=== PATIENT | female | born 1940 | race Caucasian/White ===

== ENCOUNTER → 2016-03-29 | Outpatient (CLI) | payer OTHER, BC ==
[2016-03-29 11:33] LABS: BUN/CREATININE RATIO 23.33 (6-20); CALCIUM 9.8 mg/dL (8.7-10.7); CREATININE 1.2 mg/dL (0.50-1.20); POTASSIUM 4.5 meq/L (3.8-5.2)
== END ==
LOC: MOB LAB 10:25
PROVIDERS: ATTEND Internal Medicine
DX: M81.0 Age-related osteoporosis without current pathological fracture (principal)
CPT/HCPCS: 36415; 80048

== ENCOUNTER → 2016-04-05 | Outpatient (CLI) | payer OTHER, BC ==
--- NOTE | 2016-04-05 20:54 | DI ---
CT BONE DENSITOMETRY OF THE SPINE AND HIP, 04/05/2016 10:51 AM : Clinical History: Asymptomatic post menopausal patient. Screening. Previous Exam: 12/23/2013. 3D Quantitative CT (QCT) Bone Mineral Densitometry: The [place] scans are normal. Low dose scans are sampled through the midbodies of L1 and L2. Average bone mineral density (BMD) is 81.0 mg/mL corresponding to a volumetric T-score of -3.4, and Z-score o f 0.1. The [employer]'s (ACR) volumetric QCT BMD conversion table categorizes this patient as having osteopenia of the lumbar spine, but is borderline osteoporotic. The previous study gave a bone mineral density of 98.1 mg per mL. On the previous study, axial scans through the lumbar spine showed bulky periaortic adenopathy that has resolved completely. CT X-Ray Absorptiometry (CTXA) Bone Mineral Densitometry of the Right Hip: Total hip BMD: 631 mg/cm2 T-score: -2.5 Z-score: -0.6 Femoral neck BMD: 542 mg/cm2 T-score: -2.3 Z-score: -0.5 The administrative and program specialist film shows the patient be status post ORIF of a left intertrochanteric fracture. Note: T-scores of the spine and hip are discordant approximately 40% of the time. Changes in actual Q CT or CTXA/DEXA measurements are more reliable in assessment of change in BMD status rather than allen ges in T-scores. READIN. The QCT lumbar spine BMD value by ACR's 3D volumetric to 2D areal conversion categorizes this pat ient as having osteopenia of the lumbar spine, but this value is very close to being categorized as b eing osteoporotic. The QCT spine T-score is -3.4, indicating osteoporosis of the lumbar spine. 2. The CTXA total hip and femoral neck BMD T-scores are -2.5 and -2.3, respectively. The right total hip T-score indicates this patient has osteoporosis of the total hip. 3. Since the previous exam from 12/23/2013, bulky periaortic adenopathy that was present previously has completely resolved.
== END ==
LOC: CT 10:43
PROVIDERS: ATTEND Internal Medicine
DX: M81.0 Age-related osteoporosis without current pathological fracture (principal)
CPT/HCPCS: 77078

== ENCOUNTER → 2016-04-13 | Outpatient (CLI) | payer OTHER, BC | LOC: MMPC 09:00 | PROVIDERS: ATTEND Nurse Practitioner Family | DX: Z01.419 Encounter for gynecological examination (general) (routine) without abnormal findings (principal); M81.0 Age-related osteoporosis without current pathological fracture | CPT/HCPCS: G0101; G0439; G0463; J0897 ==

== ENCOUNTER → 2016-08-24 | Outpatient (CLI) | payer OTHER, BC ==
--- NOTE | 2016-08-24 10:32 | DI ---
LEFT ANKLE, 08/24/2016 9:55 AM: Clinical History: Left foot pain. Previous Exam: None at this facility. AP and lateral views are submitted. There is no acute soft tissue, osseous, or joint abnormality. Reading: Normal left ankle exam.
--- NOTE | 2016-08-24 10:36 | DI ---
LEFT FOOT, 08/24/2016 9:55 AM: Clinical History: Left foot pain. Previous Exam: None at this facility. 3 weightbearing views are submitted. There is no acute soft tissue, osseous, or joint abnormality. Th ere is a bunion with a hallux valgus deformity. Flexion deformities are present in the third through fifth toes consistent with hammertoe deformities. Mild arthritic changes are present in the IP joint. Reading: Bunion with mild hallux valgus deformity. There are hammertoe deformities in the third through fifth toes.
== END ==
LOC: MOB RAD 09:56
PROVIDERS: ATTEND Podiatrist Foot & Ankle Surgery
DX: M79.672 Pain in left foot (principal); M25.572 Pain in left ankle and joints of left foot; M21.42 Flat foot [pes planus] (acquired), left foot; M21.41 Flat foot [pes planus] (acquired), right foot; M20.12 Hallux valgus (acquired), left foot; M20.11 Hallux valgus (acquired), right foot; M21.612 Bunion of left foot; M20.42 Other hammer toe(s) (acquired), left foot; M20.41 Other hammer toe(s) (acquired), right foot
CPT/HCPCS: 20605 ×2; 73600; 73630; G0463; J0702

== ENCOUNTER → 2016-08-30 | Outpatient (CLI) | payer OTHER, BC | LOC: MMPC 11:11 | PROVIDERS: ATTEND Internal Medicine | DX: B02.9 Zoster without complications (principal) | CPT/HCPCS: 99213; G0463 ==

== ENCOUNTER 2017-09-25 08:00 | Inpatient (IN) ==
[~2017-09-25 08:00] MED LIST: BUPivacaine Liposome/PF (Exparel) Inj 20ml vial INFIL ONE; Ketorolac Inj 30 MG, Morphine Inj (Ortho Cocktail) 5 MG, BUPivacaine Inj 0.25% PF 150 MG SPLASH ONE; LIDOCAINE W/ SODIUM BICARB 0.5 ML SYR SUBD ONE; Tranexamic Acid 1,000 MG in Sodium Chloride 0.9% 100 ML IV SCH; ceFAZolin Inj 2gm (Premix) 2 GM/50 ML BAG IV ONE
[2017-10-02] MEDS ORDERED: ceFAZolin Inj 2gm (Premix) 2 GM/50 ML BAG IV ONE ×2 (06:00→07:17)
[2017-10-02] MEDS ORDERED: Tranexamic Acid 1,000 MG in Sodium Chloride 0.9% 100 ML IV SCH (06:00)
[2017-10-02] MEDS ORDERED: LIDOCAINE W/ SODIUM BICARB 0.5 ML SYR SUBD ONE (06:00)
[2017-10-02] MEDS ORDERED: Ketorolac Inj 30 MG, Morphine Inj (Ortho Cocktail) 5 MG, BUPivacaine Inj 0.25% PF 150 MG SPLASH ONE ×3 (06:00)
[2017-10-02] MEDS ORDERED: BUPivacaine Liposome/PF (Exparel) Inj 20ml vial INFIL ONE ×2 (06:00→10:50)
[2017-10-02] MEDS ORDERED: Lactated Ringers 1,000 ML PRIMARY IV ONE ×3 (07:17→15:22)
[2017-10-02] MEDS ORDERED: LIDOCAINE W/ SODIUM BICARB 0.5 ML SYR ONE (07:17)
[2017-10-02] MEDS ORDERED: TRANEXAMIC ACID 1,000 MG / 10 ML VIAL ONE (07:17)
[2017-10-02] MEDS ORDERED: Sodium Chloride 0.9% 200 ML IV ONE (07:18)
[2017-10-02 10:18] LABS: BILIRUBIN,URINE NEGATIVE (NEG); CLARITY,URINE CLEAR (CLEAR); COLOR,URINE YELLOW (Y); GLUCOSE, URINE (UA) NEGATIVE (NEG); OCCULT BLOOD,URINE NEGATIVE (NEG); PROTEIN,URINE NEGATIVE (NEG); UROBILINOGEN,URINE 0.2 EU/dL (0.2)
[2017-10-02 10:35] LABS: SQUAMOUS EPITHELIAL CELL,UR FEW; URINE SAMPLE TYPE CLEAN CATCH URINE
[2017-10-02 10:36] LABS: URINE CASTS MODERATE
[2017-10-02] MEDS: Lactated Ringers 1,000 ML PRIMARY IV SCH ×6 (10:36→18:10)
[2017-10-02] MEDS ORDERED: BACITRACIN 50,000 UNIT VIAL IRRIG ONE (10:50)
[2017-10-02] MEDS ORDERED: Sodium Chloride 0.9% vial 60 ML ONE (10:50)
[2017-10-02 11:02] LABS: BASOPHILS # (AUTO) 0.01 10*3/UL; BASOPHILS % (AUTO) 0.2 % (0-1); EOSINOPHILS # (AUTO) 0.05 10*3/UL; EOSINOPHILS % (AUTO) 1.2 % (0-8); Hematocrit [HCT] 39.4 % (37.0-47.0); Hemoglobin [HGB] 13.4 g/dL (12.0-16.0); LYMPHOCYTES # (AUTO) 0.62 10*3/uL; MEAN CORPUSCULAR HEMOGLOBIN 32.7 PG (27-31); MEAN CORPUSCULAR VOLUME 96.1 FL (81-99); MEAN PLATELET VOLUME 10.5 FL (7.4-12.2); MONOCYTES # (AUTO) 0.45 10*3/UL (0.3-0.8); MONOCYTES % (AUTO) 10.9 % (5-15); NEUTROPHILS # (AUTO) 2.99 10*3/UL; NEUTROPHILS % (AUTO) 72.7 % (50-80)
[2017-10-02 11:07] LABS: PLATELET MORPHOLOGY COMMENT NORMAL MORPHOLOGY (NORM); RBC MORPHOLOGY COMMENT NORMAL MORPHOLOGY (NORM); WBC MORPHOLOGY COMMENT NORMAL MORPHOLOGY (NORM)
[2017-10-02 11:23] LABS: BLOOD UREA NITROGEN 27 mg/dL (7-22); BUN/CREATININE RATIO 24.54 (6-20); SERUM ALBUMIN 4.5 g/dL (3.5-4.8)
[2017-10-02] MEDS ORDERED: LIDOCAINE 2%/ EPI 1:200,000 - 20 ML VIAL ONE (11:58)
[2017-10-02] MEDS ORDERED: MIDAZOLAM 5 MG/1 ML ONE (11:58)
[2017-10-02] MEDS ORDERED: fentaNYL Inj 100 MCG/2 ML VIAL ONE ×2 (11:59→12:26)
[2017-10-02] MEDS ORDERED: BUPivacaine Inj 0.5% PF (5mg/ml) 30ml vial ONE (11:59)
[2017-10-02] MEDS ORDERED: Sodium Chloride 0.9% 250 ML IV ONE (12:16)
[2017-10-02] MEDS ORDERED: Propofol 1,000 MG/100 ML VIAL IV ONE (12:23)
--- NOTE | 2017-10-02 13:22 | CRNA.PROCE ---
Central Neuraxis Block Placemt - - Safety Measures: Time Out Taken - - Type of Block: Subarachnoid Reason for Block: Surgical Moniters Used During Block: EKG, SPO2, NIBP Positioning: Sitting Skin Prep Used: ChloroPrep Draped: No Skin Infiltration - Enter Amount Used in Comment Field: 1% Xylocaine (mL): Yes ( skin wheal) Spinal Needle Used: 25 Jocelyne 80 mm Local Anesthetic - Enter Amount Used in Comment Field: 0.75 % Bupivacaine with Dextrose (ml): Yes (2ml) Additive Used - Enter Amount Used in Comment Field: Fentanyl (mcg): Yes (15mcg) Bioclusive Dressing Applied: No Anesthesia Time - Other Weight: 56.79 kg Height: 5 ft 4 in Body Mass Index (BMI): 21.4
[2017-10-02] MEDS ORDERED: HYDROmorphone 2 MG/1 ML IVP PRN (13:25)
[2017-10-02] MEDS ORDERED: LIDOCAINE W/ SODIUM BICARB 0.5 ML SYR SUBD PRN (13:25)
[2017-10-02] MEDS ORDERED: BUTORPHANOL TARTRATE 2 MG/1 ML VIAL IVP PRN (13:25)
[2017-10-02] MEDS ORDERED: ONDANSETRON 4 MG/2 ML VIAL IVP PRN ×2 (13:25→16:44)
--- NOTE | 2017-10-02 13:25 | CRNA.PROCE ---
Nerve Block Documentation - - Type of Nerve Block Used: Right Adductor Canal Nerve Block Position for Nerve Block: Supine Moniters Used During Block: EKG, SPO2, NIBP Sedation Used - Enter Amount in Comment Field [ANES.SEDAT]: Midazolam (mg): Yes (3mg), Fentanyl (mcg): Yes (100mcg) Skin Prep Used: ChloroPrep Draped: No Technique: Nerve Stimulator (with US) Nerve Block Needle Used: 80 mm ProBlk II Local Anesthetic - Enter Amt in Comment Field [ANES.LOCNB]: 0.5 % Bupivacaine Plain (mL): Yes (20ml), 2 % Xylocaine with Epinephrine 1:200,000 (mL): Yes (20ml ) Additives to Nerve Blocks: Dexamethasone (mg): Yes (8mg(2ml)) - - PreOp Block : Time In: 12:05 PreOp Block : Time Out: 12:20 Anesthesia Time - Other Weight: 56.79 kg Height: 5 ft 4 in Body Mass Index (BMI): 21.4
--- NOTE | 2017-10-02 16:04 | CRNA.PROGR ---
Anesthesia Time - - Start date: 10/02/17 End date: 10/02/17 - Procedure/Recovery Time Anesthesia : Time In: 12:40 Anesthesia : Time Out: 16:01 Anesthesia : Total Time: 201 - Block Time PreOp Block : Time In: 12:05 PreOp Block : Time Out: 12:20 PreOp Block : Total Time: 15 - Total Anesthesia Time Total Anesthesia Time (minutes): 216 - Other Weight: 56.79 kg Height: 5 ft 4 in Body Mass Index (BMI): 21.4 Physical Status: P2 Anesthesia Type: Spinal Block
[2017-10-02] MEDS ORDERED: CALCIUM CARBONATE 500 MG (TUMS) CHEWABLE TABLET PO PRN (16:44)
[2017-10-02] MEDS ORDERED: ACETAMINOPHEN 325 MG TABLET PO PRN (16:44)
[2017-10-02] MEDS ORDERED: diphenhydrAMINE 25 MG CAPSULE PO PRN (16:44)
[2017-10-02] MEDS ORDERED: BISACODYL 5 MG TABLET PO PRN (16:44)
[2017-10-02] MEDS ORDERED: MAG HYDROX/AL HYDROX/SIMETH 30 ML SUSP PO PRN (16:44)
[2017-10-02] MEDS ORDERED: Ondansetron ODT Tab 8 MG TAB PO PRN (16:44)
[2017-10-02] MEDS ORDERED: Prochlorperazine Tab 10 MG TAB PO PRN (16:44)
[2017-10-02] MEDS ORDERED: BISACODYL 10 MG SUPPOSITORY RECTAL PRN (16:44)
--- NOTE | 2017-10-02 20:28 | ORTHO.PROG ---
Last Taken Vital Signs: Vital Signs - Last Taken Temperature 98.1 F 10/02/17 19:41 Pulse Rate 76 10/02/17 19:41 Respiratory Rate 18 10/02/17 19:41 Blood Pressure 133/76 10/02/17 19:41 Pulse Ox 98 10/02/17 19:41 Subjective: Patient comfortable after right knee replacement, has Dr. espinoza in place as well as local anesthetic and experal Objective: Examination of the right lower extremity shows that she has good active motion of the foot and ankle. Patient has excellent stability of the knee at time of surgery and has dressing in place no active bleeding or thigh pain. No swelling or edema. Laboratory Results 10/02/17 10/02/17 10/02/17 Range/Units 10:10 10:51 10:51 WBC 4.12 L (4.8-10.8) 10^3/uL RBC 4.10 L (4.20-5.40) 10^6/uL Hgb 13.4 (12.0-16.0) g/dL Hct 39.4 (37.0-47.0) % MCV 96.1 (81-99) FL MCH 32.7 H (27-31) PG MCHC 34.0 (33-37) g/dL RDW Std Deviation 44.6 (39-50) fL RDW Coeff of Reid 13.2 (11.5-14.5) % Plt Count 144 (140-350) 10*3/uL MPV 10.5 (7.4-12.2) FL Immature Gran % (Auto) 0 (0-5) % Neut % (Auto) 72.7 (50-80) % Lymph % (Auto) 15.0 (10-50) % [place] % (Auto) 10.9 (5-15) % Eos % (Auto) 1.2 (0-8) % Baso % (Auto) 0.2 (0-1) % Immature Gran # (Auto) 0 10*3/UL Neut # (Auto) 2.99 10*3/UL Lymph # (Auto) 0.62 10*3/uL [place] # (Auto) 0.45 (0.3-0.8) 10*3/UL Eos # (Auto) 0.05 10*3/UL Baso # (Auto) 0.01 10*3/UL WBC Morphology Comment Normal morphology (NORM) Plt Morphology Comment Normal morphology (NORM) RBC Morph Comment Normal morphology (NORM) Sodium 140 (135-145) meq/L Potassium 4.6 (3.8-5.2) meq/L Chloride 105 (98-112) meq/L Carbon Dioxide 27 (23-33) meq/L Anion Gap 8 (5-20) BUN 27 H (7-22) mg/dL Creatinine 1.1 (0.50-1.20) mg/dL BUN/Creatinine Ratio 24.54 H (6-20) Glucose 96 (78-110) mg/dL Calculated Osmolality 294.0 H (267-292) mOsm/kg Calcium 10.3 (8.7-10.7) mg/dL Total Bilirubin 0.8 (0.3-1.2) mg/dL AST 50 H (8-39) IU/L ALT 25 (9-52) IU/L Alkaline Phosphatase 72 (38-126) IU/L Total Protein 7.6 (6.1-8.0) g/dL Albumin 4.5 (3.5-4.8) g/dL Globulin 3.2 (2.50-4.10) g/dL Albumin/Globulin Ratio 1.40 (1.3-2.0) mg/g Ur Collection Type Clean catch urine Urine Color Yellow (Y) Urine Clarity Clear (CLEAR) Urine pH 6.0 (5.0-8.5) Ur Specific [place] 1.010 (1.005-1.030) Urine Protein Negative (NEG) mg/dl Urine Glucose (UA) Negative (NEG) mg/dL Urine Ketones Negative (NEG) Urine Occult Blood Negative (NEG) Urine Nitrate Negative (NEG) Urine Bilirubin Negative (NEG) Urine Urobilinogen 0.2 (0.2) EU/dL Ur Leukocyte Esterase Trace (NEG) Urine RBC None (NONE) /hpf Urine WBC 1-3 (NONE) Ur Squamous Epith Cells Few (NONE) Ur Renal Epithelial Cell None (NONE) Urine Crystals None Urine Bacteria None (NONE) Urine Casts Moderate (NONE) Urine Mucus Moderate (NONE) Urine Trichomonas None (NONE) Urine Yeast None (NONE) Blood Type Antibody Screen Antibody Identification 10/02/17 Range/Units 10:51 WBC (4.8-10.8) 10^3/uL RBC (4.20-5.40) 10^6/uL Hgb (12.0-16.0) g/dL Hct (37.0-47.0) % MCV (81-99) FL MCH (27-31) PG MCHC (33-37) g/dL RDW Std Deviation (39-50) fL RDW Coeff of Reid (11.5-14.5) % Plt Count (140-350) 10*3/uL MPV (7.4-12.2) FL Immature Gran % (Auto) (0-5) % Neut % (Auto) (50-80) % Lymph % (Auto) (10-50) % [place] % (Auto) (5-15) % Eos % (Auto) (0-8) % Baso % (Auto) (0-1) % Immature Gran # (Auto) 10*3/UL Neut # (Auto) 10*3/UL Lymph # (Auto) 10*3/uL [place] # (Auto) (0.3-0.8) 10*3/UL Eos # (Auto) 10*3/UL Baso # (Auto) 10*3/UL WBC Morphology Comment (NORM) Plt Morphology Comment (NORM) RBC Morph Comment (NORM) Sodium (135-145) meq/L Potassium (3.8-5.2) meq/L Chloride (98-112) meq/L Carbon Dioxide (23-33) meq/L Anion Gap (5-20) BUN (7-22) mg/dL Creatinine (0.50-1.20) mg/dL BUN/Creatinine Ratio (6-20) Glucose (78-110) mg/dL Calculated Osmolality (267-292) mOsm/kg Calcium (8.7-10.7) mg/dL Total Bilirubin (0.3-1.2) mg/dL AST (8-39) IU/L ALT (9-52) IU/L Alkaline Phosphatase (38-126) IU/L Total Protein (6.1-8.0) g/dL Albumin (3.5-4.8) g/dL Globulin (2.50-4.10) g/dL Albumin/Globulin Ratio (1.3-2.0) mg/g Ur Collection Type Urine Color (Y) Urine Clarity (CLEAR) Urine pH (5.0-8.5) Ur Specific [place] (1.005-1.030) Urine Protein (NEG) mg/dl Urine Glucose (UA) (NEG) mg/dL Urine Ketones (NEG) Urine Occult Blood (NEG) Urine Nitrate (NEG) Urine Bilirubin (NEG) Urine Urobilinogen (0.2) EU/dL Ur Leukocyte Esterase (NEG) Urine RBC (NONE) /hpf Urine WBC (NONE) Ur Squamous Epith Cells (NONE) Ur Renal Epithelial Cell (NONE) Urine Crystals Urine Bacteria (NONE) Urine Casts (NONE) Urine Mucus (NONE) Urine Trichomonas (NONE) Urine Yeast (NONE) Blood Type A POSITIVE Antibody Screen Positive Antibody Identification Pending Vital Signs (Last 8 hours) Temp Pulse Pulse Resp BP BP Pulse Ox 10/02/17 19:41 98.1 F 76 18 133/76 98 10/02/17 18:15 78 18 135/74 99 10/02/17 17:45 98.0 F 81 20 136/80 99 10/02/17 17:15 97.7 F 79 18 146/70 100 10/02/17 17:00 97.6 F 84 18 141/83 99 10/02/17 16:47 97.3 F 80 18 142/87 96 10/02/17 16:30 97.2 F 79 18 120/78 97 10/02/17 16:28 97.3 F 74 12 143/81 100 10/02/17 16:20 80 16 141/78 100 10/02/17 16:14 82 16 118/96 100 10/02/17 16:10 81 15 123/87 99 10/02/17 16:02 74 14 113/70 98 10/02/17 15:54 97.1 F 78 16 121/53 98 Assessment: Right total knee replacement Plan: Pain control with IV Tylenol and hydrocodone. Have discussed with pharmacy and the hospitalists in regard to potential serotonin syndrome. DVT prophylaxis with enoxaparin and pneumatic sequentials Physical therapy and occupational therapy.
--- NOTE | 2017-10-02 20:34 | ORTHO.OP ---
- - -: See Dictated Operative Report Procedure Codes - Lower Extremity/Knee Procedures Primary Lower Extremity Procedure Code: 11462 : TKA (Kacey Evangelista M.D. assisted as well as Kayli White.)
--- NOTE | 2017-10-02 21:00 | CONSULT ---
Consult Note - Consult Reason for Consult: PostOp Consulation : Ortho Requesting Physician: Dr. Viramontes Primary Care Provider: Rj Kohli MD - History of Present Illness History of Present Illness: This very nice 76-year-old female she is status post total right knee arthroplasty by Dr. Viramontes. She had a ski accident in 1979 and this is been an issue since then she is doing well postop. 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 jose martin kaufman and she is on selegiline 5 mg a.m. and p.m. Past Medical History Medical History: Closed fracture of femur (Acute 04/01/11). Herpes zoster ( Resolved). lymphoma,marginal zone (Chronic 07/21/11) Surgical History: Status post colonoscopy (Acute). Status post knee surgery ( Acute). Status post tubal ligation (Acute). History of unilateral oophorectomy (Acute Tobacco Use: Never Smoker In the Past 12 Months, Have Used or Abuse Any of the Following Substance: None Review of Systems - Review of Systems All Systems: Reviewed & No Additional Complaints Except as Stated - Respiratory Respiratory: DENIES: Negative System Review, Cough, Sputum, Dyspnea At Rest, Dyspnea with Exertion, Pleuritic Pain, Hemoptysis, Wheezing, Other, See HPI - Cardiovascular Cardiovascular: DENIES: Negative System Review, Chest Pain, Edema, Syncope, Palpitations, Orthopnea, Paroxysmal Nocturnal Dyspnea, Other, See HPI - Gastrointestinal Gastrointestinal / Abdominal: DENIES: Negative System Review, Nausea, Vomiting, Diarrhea, Constipation, Abdominal Pain, Bloody Stool, Poor Appetite, Heartburn, Regurgitation, Bloating, Lactose Intolerance, Melena, Bright Red Blood per Rectum, Other, See HPI - Neurological Neurologic: DENIES: Negative System Review, Headache, Numbness/Paresthesia, Tremors, Weakness, Seizures, Head Trauma, LOC, Dizziness, Confusion, Memory Loss , Difficulty Walking, Incoordination, Other, See HPI Medication / Allergies Home Medications: Home Medications 3 Medication Instructions Recorded Confirmed Type Cholecalciferol [Vitamin D] 1 cap PO DAILY 07/24/11 11/03/11 History Denosumab [Prolia] 60 mg SUBCUT Every 6 mo. #0 ml 01/06/14 10/02/17 History Valacyclovir HCl [Valacyclovir] 1 tab PO Q8H #21 tab 08/30/16 Clinic cholecalciferol (vitamin D3) 2,000 2,000 unit PO QDAY #0 cap 04/02/17 10/02/17 History unit capsule hydrochlorothiazide 25 mg tablet 12.5 mg PO QDAY #45 tab 04/02/17 10/02/17 Rx losartan 50 mg tablet 50 mg PO BID #180 tab 04/02/17 10/02/17 Rx selegiline 5 mg tablet 5 mg PO BID #180 tab 04/17/17 10/02/17 Rx naproxen sodium 220 mg tablet 220 mg PO BID tab 08/28/17 10/02/17 History oxycodone-acetaminophen 7.5 mg-325 1 tab PO .Q4 PRN #40 tab 09/06/17 10/02/17 Rx mg tablet Allergies/Adverse Reactions: Allergies 3 Allergy/AdvReac Type Severity Reaction Status Date / Time allopurinol Allergy Severe Severe Rash Verified 10/02/17 10:22 ibuprofen [From Motrin] Allergy Intermediate RASH Verified 10/02/17 10:22 levofloxacin [From Levaquin] Allergy Intermediate severe rash Verified 10/02/17 10:22 morphine Allergy Intermediate NAUSEA Verified 10/02/17 10:22 rituximab [From Rituxan] Allergy severe Verified 10/02/17 10:22 allergic reaction Exam - Vitals Vital Signs: Vital Signs Temperature 98.1 F Temperature Source Temporal Artery Scan Pulse Rate [Pulse Oximeter] 76 Pulse Rate 74 Respiratory Rate 18 Blood Pressure [Left Arm] 133/76 Blood Pressure 143/81 Pulse Ox 98 Oxygen Flow Rate 0.5 Oxygen Delivery Method Room Air Height 5 ft 4 in Weight 125 lb 3.2 oz - General General Appearance: No Acute Distress, Cooperative - Respiratory Respiratory Exam: POSITIVE: Clear to Auscultation - Bilaterally, Breathing Non Labored, Normal To Percussion, Normal to Percussion and Palpation - Cardiovascular Cardiovascular Exam: POSITIVE: RRR, No Murmur, No Clicks, No Gallops, No Rubs, PMI Non-Displaced - GI/Abdominal GI/Abdominal Exam: POSITIVE: Normal Bowel Sounds, Non Tender, Non Distended, Soft, No Masses, No Hepatomegaly, No Splenomegaly, No Organomegaly - Extremities Extremities Exam: POSITIVE: No Clubbing Present, No Edema Present, No Cyanosis Present - Neurological Neurological Exam: POSITIVE: Alert, Oriented x 3, No Facial Droop, Speech Intact / Clear, Moves All Extremities Equally Results - Labs CBC and BMP: 10/02/17 10:51 10/02/17 10:51 Assessment and Plan - Patient Problems (1) Status post total hip replacement, right Current Visit: Yes Status: Acute Comment: Deferred Dr. Viramontes for PTOT and anticoagulation pain is controlled Code(s): Z96.641 - Presence of right artificial hip joint (2) Benign essential hypertension Current Visit: No Status: Acute Onset Date: 07/21/11 Comment: The present time continue current meds Code(s): I10 - Essential (primary) hypertension
[2017-10-02] MEDS: Acetaminophen 1000mg Inj 1,000 MG/100 ML VIAL IV SCH (21:07)
[2017-10-02] MEDS: DOCUSATE 100 MG CAPSULE PO SCH (21:07)
[2017-10-02] MEDS: LOSARTAN 50 MG TABLET PO SCH (21:08)
[2017-10-02] MEDS: ceFAZolin Inj 2gm (Premix) 2 GM/50 ML BAG IV SCH (21:46)
[2017-10-03] MEDS: Acetaminophen 1000mg Inj 1,000 MG/100 ML VIAL IV SCH ×3 (04:05→20:59)
[2017-10-03] MEDS: Lactated Ringers 1,000 ML PRIMARY IV SCH (04:10)
[2017-10-03] MEDS: ceFAZolin Inj 2gm (Premix) 2 GM/50 ML BAG IV SCH (05:15)
[2017-10-03 05:43] LABS: Hematocrit [HCT] 30.3 % (37.0-47.0); Hemoglobin [HGB] 10.3 g/dL (12.0-16.0); MEAN CORPUSCULAR HEMOGLOBIN 32.3 PG (27-31); MEAN PLATELET VOLUME 11.3 FL (7.4-12.2); RED BLOOD COUNT 3.19 10^6/uL (4.20-5.40)
[2017-10-03 06:08] LABS: BLOOD UREA NITROGEN 25 mg/dL (7-22); BUN/CREATININE RATIO 22.72 (6-20)
--- NOTE | 2017-10-03 08:01 | ORTHO.PROG ---
Last Taken Vital Signs: Vital Signs - Last Taken Temperature 98.2 F 10/03/17 07:29 Pulse Rate 88 10/03/17 07:29 Respiratory Rate 20 10/03/17 07:29 Blood Pressure 109/65 10/03/17 07:29 Pulse Ox 95 10/03/17 07:29 Subjective: Patient doing well has no pain at the current time after right total knee replacement Objective: Examination shows her motor and sensory exam of the lower extremity is good. Her PREVENA dressing is in place with no active issues or problems. Laboratory Results 10/02/17 10/02/17 10/02/17 Range/Units 10:10 10:51 10:51 WBC 4.12 L (4.8-10.8) 10^3/uL RBC 4.10 L (4.20-5.40) 10^6/uL Hgb 13.4 (12.0-16.0) g/dL Hct 39.4 (37.0-47.0) % MCV 96.1 (81-99) FL MCH 32.7 H (27-31) PG MCHC 34.0 (33-37) g/dL RDW Std Deviation 44.6 (39-50) fL RDW Coeff of [place] 13.2 (11.5-14.5) % Plt Count 144 (140-350) 10*3/uL MPV 10.5 (7.4-12.2) FL Immature Gran % (Auto) 0 (0-5) % Neut % (Auto) 72.7 (50-80) % Lymph % (Auto) 15.0 (10-50) % [place] % (Auto) 10.9 (5-15) % Eos % (Auto) 1.2 (0-8) % Baso % (Auto) 0.2 (0-1) % Immature Gran # (Auto) 0 10*3/UL Neut # (Auto) 2.99 10*3/UL Lymph # (Auto) 0.62 10*3/uL [place] # (Auto) 0.45 (0.3-0.8) 10*3/UL Eos # (Auto) 0.05 10*3/UL Baso # (Auto) 0.01 10*3/UL WBC Morphology Comment Normal morphology (NORM) Plt Morphology Comment Normal morphology (NORM) RBC Morph Comment Normal morphology (NORM) Sodium 140 (135-145) meq/L Potassium 4.6 (3.8-5.2) meq/L Chloride 105 (98-112) meq/L Carbon Dioxide 27 (23-33) meq/L Anion Gap 8 (5-20) BUN 27 H (7-22) mg/dL Creatinine 1.1 (0.50-1.20) mg/dL BUN/Creatinine Ratio 24.54 H (6-20) Glucose 96 (78-110) mg/dL Calculated Osmolality 294.0 H (267-292) mOsm/kg Calcium 10.3 (8.7-10.7) mg/dL Total Bilirubin 0.8 (0.3-1.2) mg/dL AST 50 H (8-39) IU/L ALT 25 (9-52) IU/L Alkaline Phosphatase 72 (38-126) IU/L Total Protein 7.6 (6.1-8.0) g/dL Albumin 4.5 (3.5-4.8) g/dL Globulin 3.2 (2.50-4.10) g/dL Albumin/Globulin Ratio 1.40 (1.3-2.0) mg/g Ur Collection Type Clean catch urine Urine Color Yellow (Y) Urine Clarity Clear (CLEAR) Urine pH 6.0 (5.0-8.5) Ur Specific [place] 1.010 (1.005-1.030) Urine Protein Negative (NEG) mg/dl Urine Glucose (UA) Negative (NEG) mg/dL Urine Ketones Negative (NEG) Urine Occult Blood Negative (NEG) Urine Nitrate Negative (NEG) Urine Bilirubin Negative (NEG) Urine Urobilinogen 0.2 (0.2) EU/dL Ur Leukocyte Esterase Trace (NEG) Urine RBC None (NONE) /hpf Urine WBC 1-3 (NONE) Ur Squamous Epith Cells Few (NONE) Ur Renal Epithelial Cell None (NONE) Urine Crystals None Urine Bacteria None (NONE) Urine Casts Moderate (NONE) Urine Mucus Moderate (NONE) Urine Trichomonas None (NONE) Urine Yeast None (NONE) Blood Type Antibody Screen Antibody Identification 10/02/17 10/03/17 10/03/17 Range/Units 10:51 04:20 04:20 WBC 7.11 (4.8-10.8) 10^3/uL RBC 3.19 L (4.20-5.40) 10^6/uL Hgb 10.3 L (12.0-16.0) g/dL Hct 30.3 L (37.0-47.0) % MCV 95.0 (81-99) FL MCH 32.3 H (27-31) PG MCHC 34.0 (33-37) g/dL RDW Std Deviation 42.6 (39-50) fL RDW Coeff of [place] 12.8 (11.5-14.5) % Plt Count 129 L (140-350) 10*3/uL MPV 11.3 (7.4-12.2) FL Immature Gran % (Auto) (0-5) % Neut % (Auto) (50-80) % Lymph % (Auto) (10-50) % [place] % (Auto) (5-15) % Eos % (Auto) (0-8) % Baso % (Auto) (0-1) % Immature Gran # (Auto) 10*3/UL Neut # (Auto) 10*3/UL Lymph # (Auto) 10*3/uL [place] # (Auto) (0.3-0.8) 10*3/UL Eos # (Auto) 10*3/UL Baso # (Auto) 10*3/UL WBC Morphology Comment (NORM) Plt Morphology Comment (NORM) RBC Morph Comment (NORM) Sodium 136 (135-145) meq/L Potassium 4.1 (3.8-5.2) meq/L Chloride 108 (98-112) meq/L Carbon Dioxide 23 (23-33) meq/L Anion Gap 5 (5-20) BUN 25 H (7-22) mg/dL Creatinine 1.1 (0.50-1.20) mg/dL BUN/Creatinine Ratio 22.72 H (6-20) Glucose 127 H (78-110) mg/dL Calculated Osmolality 287.0 (267-292) mOsm/kg Calcium 9.0 (8.7-10.7) mg/dL Total Bilirubin (0.3-1.2) mg/dL AST (8-39) IU/L ALT (9-52) IU/L Alkaline Phosphatase (38-126) IU/L Total Protein (6.1-8.0) g/dL Albumin (3.5-4.8) g/dL Globulin (2.50-4.10) g/dL Albumin/Globulin Ratio (1.3-2.0) mg/g Ur Collection Type Urine Color (Y) Urine Clarity (CLEAR) Urine pH (5.0-8.5) Ur Specific [place] (1.005-1.030) Urine Protein (NEG) mg/dl Urine Glucose (UA) (NEG) mg/dL Urine Ketones (NEG) Urine Occult Blood (NEG) Urine Nitrate (NEG) Urine Bilirubin (NEG) Urine Urobilinogen (0.2) EU/dL Ur Leukocyte Esterase (NEG) Urine RBC (NONE) /hpf Urine WBC (NONE) Ur Squamous Epith Cells (NONE) Ur Renal Epithelial Cell (NONE) Urine Crystals Urine Bacteria (NONE) Urine Casts (NONE) Urine Mucus (NONE) Urine Trichomonas (NONE) Urine Yeast (NONE) Blood Type A POSITIVE Antibody Screen Positive Antibody Identification Pending Vital Signs (24 hrs) Temp Pulse Pulse Resp BP BP Pulse Ox 10/03/17 07:29 98.2 F 88 20 109/65 95 10/03/17 07:00 18 10/03/17 04:47 98.1 F 70 18 110/60 94 10/03/17 00:34 97.2 F 75 16 119/68 95 10/02/17 19:41 98.1 F 76 18 133/76 98 10/02/17 18:15 78 18 135/74 99 10/02/17 17:45 98.0 F 81 20 136/80 99 10/02/17 17:15 97.7 F 79 18 146/70 100 10/02/17 17:00 97.6 F 84 18 141/83 99 10/02/17 16:47 97.3 F 80 18 142/87 96 10/02/17 16:30 97.2 F 79 18 120/78 97 10/02/17 16:28 97.3 F 74 12 143/81 100 10/02/17 16:20 80 16 141/78 100 10/02/17 16:14 82 16 118/96 100 10/02/17 16:10 81 15 123/87 99 10/02/17 16:02 74 14 113/70 98 10/02/17 15:54 97.1 F 78 16 121/53 98 10/02/17 10:57 98.4 F 70 13 135/74 99 Assessment: Right total knee replacement Postoperative anemia Plan: Patient will work with physical therapy and occupational therapy today. Hopefully pain control will be IV TYLENOL AND ORAL NARCOTICS. SHE IS HAVING NO PAIN AT THE CURRENT TIME BUT I SUSPECT THAT THIS IS THE AFFECT OF THE BLOCK AND not so much the affect from the Tylenol. We'll continue with DVT prophylaxis with pneumatics and enoxaparin.
[2017-10-03] MEDS: LOSARTAN 50 MG TABLET PO SCH ×2 (08:31→20:59)
[2017-10-03] MEDS: SELEGILINE HCL 5 MG PO SCH ×2 (08:31→12:58)
[2017-10-03] MEDS: CHOLECALCIFEROL 1000 IU TABLET PO SCH (08:31)
[2017-10-03] MEDS: HYDROCHLOROTHIAZIDE 12.5 MG CAPSULE PO SCH (08:31)
[2017-10-03] MEDS: ENOXAPARIN SODIUM 30 MG/0.3 ML SYRINGE SUBCUT SCH ×2 (08:31→20:59)
[2017-10-03] MEDS: DOCUSATE 100 MG CAPSULE PO SCH ×2 (08:32→21:38)
--- NOTE | 2017-10-03 10:25 | DI ---
XR KNEE 1 OR 2 VWS,10/02/2017 3:29 PM: Clinical History: Total knee arthroplasty Previous Exam: September 21, 2017 Findings: AP and lateral views of the right knee are obtained, and demonstrate postsurgical changes consistent with a right total knee arthroplasty. Overlying skin efraín are noted. There is a healing fracture of the right proximal fibula. There is no evidence of hardware loosening and no fracture. Impression: Status post right total knee arthroplasty.
--- NOTE | 2017-10-03 10:25 | PDOC(PROG) ---
Interval History: Patient has no complaints no pain Objective : Data - Labs CBC and BMP: 10/03/17 04:20 10/03/17 04:20 Objective : Exam - General General Appearance: No Acute Distress, Cooperative - Respiratory Respiratory Exam: Clear to Auscultation - Bilaterally, Breathing Non Labored, Normal To Percussion, Normal to Percussion and Palpation - Cardiovascular Cardiovascular Exam: RRR, No Murmur, No Clicks, No Gallops, No Rubs, PMI Non- Displaced - GI/Abdominal GI/Abdominal Exam: Normal Bowel Sounds, Non Tender, Non Distended, Soft, No Masses, No Hepatomegaly, No Splenomegaly, No Organomegaly Assessment and Plan - Patient Problems (1) Status post total hip replacement, right Current Visit: Yes Status: Acute Comment: Doing well deferred to Dr. Viramontes Code(s): Z96.641 - Presence of right artificial hip joint (2) Benign essential hypertension Current Visit: No Status: Acute Onset Date: 07/21/11 Comment: Stable at present time Code(s): I10 - Essential (primary) hypertension
--- NOTE | 2017-10-03 11:19 | CRNA.PROGR ---
Anesthesia Note - Progress Notes Anesthesia Progress Note: Sitting up in a chair. Alert, cheerful, states she's pleased with her post operative course. States only pain med so far has been IV acetominophen. Denies nausea. No headache. Pleased with a spinal anesthetic with Diprivan sedation. Suction dressing still on. Aguilera catheter still in. States she has a knee immobilizer on. Laboratory Results 10/02/17 10/02/17 10/02/17 Range/Units 10:10 10:51 10:51 WBC (4.8-10.8) 10^3/uL RBC (4.20-5.40) 10^6/uL Hgb (12.0-16.0) g/dL Hct (37.0-47.0) % MCV (81-99) FL MCH (27-31) PG MCHC (33-37) g/dL RDW Std Deviation (39-50) fL RDW Coeff of Reid (11.5-14.5) % Plt Count (140-350) 10*3/uL MPV (7.4-12.2) FL Sodium 140 (135-145) meq/L Potassium 4.6 (3.8-5.2) meq/L Chloride 105 (98-112) meq/L Carbon Dioxide 27 (23-33) meq/L Anion Gap 8 (5-20) BUN 27 H (7-22) mg/dL Creatinine 1.1 (0.50-1.20) mg/dL BUN/Creatinine Ratio 24.54 H (6-20) Glucose 96 (78-110) mg/dL Calculated Osmolality 294.0 H (267-292) mOsm/kg Calcium 10.3 (8.7-10.7) mg/dL Total Bilirubin 0.8 (0.3-1.2) mg/dL AST 50 H (8-39) IU/L ALT 25 (9-52) IU/L Alkaline Phosphatase 72 (38-126) IU/L Total Protein 7.6 (6.1-8.0) g/dL Albumin 4.5 (3.5-4.8) g/dL Globulin 3.2 (2.50-4.10) g/dL Albumin/Globulin Ratio 1.40 (1.3-2.0) mg/g Ur Collection Type Clean catch urine Urine Color Yellow (Y) Urine Clarity Clear (CLEAR) Urine pH 6.0 (5.0-8.5) Ur Specific [place] 1.010 (1.005-1.030) Urine Protein Negative (NEG) mg/dl Urine Glucose (UA) Negative (NEG) mg/dL Urine Ketones Negative (NEG) Urine Occult Blood Negative (NEG) Urine Nitrate Negative (NEG) Urine Bilirubin Negative (NEG) Urine Urobilinogen 0.2 (0.2) EU/dL Ur Leukocyte Esterase Trace (NEG) Urine RBC None (NONE) /hpf Urine WBC 1-3 (NONE) Ur Squamous Epith Cells Few (NONE) Ur Renal Epithelial Cell None (NONE) Urine Crystals None Urine Bacteria None (NONE) Urine Casts Moderate (NONE) Urine Mucus Moderate (NONE) Urine Trichomonas None (NONE) Urine Yeast None (NONE) Blood Type A POSITIVE Antibody Screen Positive Antibody Identification Pending 10/03/17 10/03/17 Range/Units 04:20 04:20 WBC 7.11 (4.8-10.8) 10^3/uL RBC 3.19 L (4.20-5.40) 10^6/uL Hgb 10.3 L (12.0-16.0) g/dL Hct 30.3 L (37.0-47.0) % MCV 95.0 (81-99) FL MCH 32.3 H (27-31) PG MCHC 34.0 (33-37) g/dL RDW Std Deviation 42.6 (39-50) fL RDW Coeff of Reid 12.8 (11.5-14.5) % Plt Count 129 L (140-350) 10*3/uL MPV 11.3 (7.4-12.2) FL Sodium 136 (135-145) meq/L Potassium 4.1 (3.8-5.2) meq/L Chloride 108 (98-112) meq/L Carbon Dioxide 23 (23-33) meq/L Anion Gap 5 (5-20) BUN 25 H (7-22) mg/dL Creatinine 1.1 (0.50-1.20) mg/dL BUN/Creatinine Ratio 22.72 H (6-20) Glucose 127 H (78-110) mg/dL Calculated Osmolality 287.0 (267-292) mOsm/kg Calcium 9.0 (8.7-10.7) mg/dL Total Bilirubin (0.3-1.2) mg/dL AST (8-39) IU/L ALT (9-52) IU/L Alkaline Phosphatase (38-126) IU/L Total Protein (6.1-8.0) g/dL Albumin (3.5-4.8) g/dL Globulin (2.50-4.10) g/dL Albumin/Globulin Ratio (1.3-2.0) mg/g Ur Collection Type Urine Color (Y) Urine Clarity (CLEAR) Urine pH (5.0-8.5) Ur Specific [place] (1.005-1.030) Urine Protein (NEG) mg/dl Urine Glucose (UA) (NEG) mg/dL Urine Ketones (NEG) Urine Occult Blood (NEG) Urine Nitrate (NEG) Urine Bilirubin (NEG) Urine Urobilinogen (0.2) EU/dL Ur Leukocyte Esterase (NEG) Urine RBC (NONE) /hpf Urine WBC (NONE) Ur Squamous Epith Cells (NONE) Ur Renal Epithelial Cell (NONE) Urine Crystals Urine Bacteria (NONE) Urine Casts (NONE) Urine Mucus (NONE) Urine Trichomonas (NONE) Urine Yeast (NONE) Blood Type Antibody Screen Antibody Identification Vital Signs - Last Taken Temperature 98.2 F 10/03/17 07:29 Pulse Rate 88 10/03/17 07:29 Respiratory Rate 20 10/03/17 07:29 Blood Pressure 109/65 10/03/17 07:29 Pulse Ox 95 10/03/17 07:29 No apparent anesthetic difficulties.
--- NOTE | 2017-10-03 11:38 | OT PM DAY ---
Diagnosis : Right Total Knee Arthroplasty PM - Occupational Therapy O: The patient was issued an [employer] Cold Therapy Unit and instructed in its proper use and care. P: No further treatment is indicated at this time. MTDD
[2017-10-03] MEDS: oxyCODONE IR Tab 5 MG TAB PO PRN (16:46)
--- NOTE | 2017-10-03 16:47 | PT.PROG ---
Progress Note Progress Note: S: Pt. reports decrease in pain in surgical area as well being able to get dressed and ambulate short distances with walker and knee immobilizer. pt states she has continued weakness in quads and states hesitation to try sit to stands without knee immobilizer O: ot transported down to therapy gym. pt. instructed through the following exercises: heel slides x10, glute set x 10, straight leg raise x 10, hip abduction/adduction x 10, sit to stand x 4/10 with knee immobilizer and CGA x1, red theraband 4 way ankle x10 each direction, pt instructed to ambulate 30ft w/ CGA x 1. Pt wheeled back to room by tech and left sitting in chair with chair alarm attached, call button in hand, feet elevated, and rolled towel under right ankle. A: pt performed all reps of exercises except sit to stands without complaint of pain. pt appeared in good spirits and reported no dizziness upon sitting up. sit to stand transfers were performed with minimal verbal assistance and minimal assistance. pt would continue benefit from physical therapy P: Continue exercises listed above and per POC by Susan Thompson, SPT cosigned by Oriana DELAROSAT
[2017-10-04] MEDS: oxyCODONE/APAP 7.5/325 Tab 1 TAB TAB PO PRN (02:42)
[2017-10-04 05:10] LABS: Hematocrit [HCT] 28.2 % (37.0-47.0); Hemoglobin [HGB] 9.5 g/dL (12.0-16.0); MEAN CORPUSCULAR HEMOGLOBIN 32.3 PG (27-31); MEAN CORPUSCULAR HGB CONC 33.7 g/dL (33-37); MEAN CORPUSCULAR VOLUME 95.9 FL (81-99); MEAN PLATELET VOLUME 10.8 FL (7.4-12.2); RED BLOOD COUNT 2.94 10^6/uL (4.20-5.40)
[2017-10-04] MEDS: Acetaminophen 1000mg Inj 1,000 MG/100 ML VIAL IV SCH ×3 (05:15→20:23)
[2017-10-04 05:23] LABS: BLOOD UREA NITROGEN 27 mg/dL (7-22)
[2017-10-04] MEDS: SELEGILINE HCL 5 MG PO SCH ×2 (06:58→13:05)
[2017-10-04] MEDS: HYDROCHLOROTHIAZIDE 12.5 MG CAPSULE PO SCH (06:58)
[2017-10-04] MEDS: oxyCODONE IR Tab 5 MG TAB PO PRN ×2 (08:38→15:06)
[2017-10-04] MEDS: DOCUSATE 100 MG CAPSULE PO SCH ×2 (08:38→20:24)
[2017-10-04] MEDS: LOSARTAN 50 MG TABLET PO SCH ×2 (08:38→20:24)
[2017-10-04] MEDS: CHOLECALCIFEROL 1000 IU TABLET PO SCH (08:38)
[2017-10-04] MEDS: ENOXAPARIN SODIUM 30 MG/0.3 ML SYRINGE SUBCUT SCH ×2 (08:38→20:23)
[2017-10-04] MEDS: HYDROmorphone 2 MG/1 ML IVP PRN ×2 (11:28→17:41)
--- NOTE | 2017-10-04 11:30 | OT.PROG ---
Progress Note Progress Note: S: pt stated that she needed to use the rest room and get dressed before completing therapy. O: tx consisted of ADL activities. pt completed bed mobility exercises from supine to EOB with MIN A for R LE positioning, functional transfers from EOB to toilet with use of walker and CGA for safety. pt is independent in toilet hygiene and tasks. pt completed at sink ADLs of brushing teeth, combing hair and washing hands with CGA for safety. pt completed dressing tasks. pt is independent in UE dressing with set up and MIN A for LE dressing for donning pants over socks. pt completed functional ambulation x 40' with FWW and CGA for safety. pt completed transfer from w/c to EOB with MIN A for LE positioning. pt completed another toilet transfer from w/c to toilet after PT session and is independent in all toileting tasks, dressing and hygiene. A: pt is doing well in ADLS and functional mobility. P: continue POC
--- NOTE | 2017-10-04 12:54 | PTI REPORT ---
Thank you for the referral of Shameka Crain. She was seen on 10/03/17 for an inpatient evaluation status post right total knee arthroplasty. SUBJECTIVE: The patient is a 76-year-old female. The patient reports that she lives in between [facility]. The patient has had physical therapy before. The patient is in minimal pain because she doesn't have full sensation to her right lower extremity. The patient reports she has a walker and a ramp into her home with hand rails. The patient reports her is available to help her. PAST MEDICAL HISTORY: Past medical history can be found in the patient's medical record. OBJECTIVE FINDINGS: General observations: Nursing okayed treatment prior to PT. The patient was supine in bed with head of bed elevated over 30 degrees upon the therapist's arrival. The patient has a Aguilera catheter and a drain in place. The patient had an ice pack wrapped around her knee. Bed mobility: The patient required min assist x1 for supine to sit transfer to edge of bed. The patient felt dizzy when seated edge of bed. Blood pressure was taken and was 121/60. Heart rate was 82 beats per minute. Transfers: The patient required min assist x2 for sit to stand transfer with front wheeled walker. The patient was weighed by nursing staff. The patient was instructed to perform stand to sit transfer to chair with max cues for technique. Balance: The patient's static balance was fair to poor. Ambulation: The patient ambulated approximately 5 feet to her chair with min assist x2 with walker. ASSESSMENT: The patient is a 76-year-old female that presents status post right total knee arthroplasty. The patient will benefit from skilled therapy to improve overall strength and functional mobility and to return to prior level of function. Problem List: Decreased strength Decreased functional mobility Short-Term Goals: To be met by discharge from inpatient: Patient will be independent with all transfers with least restrictive assistive device. Patient will be able to ambulate 150 feet with least restrictive assistive device. Patient will be able to return to prior level of function. Long-Term Goals: To be met following discharge from inpatient: Patient will be seen by outpatient physical therapy. TREATMENT PLAN: Patient will be seen B.I.D during the week and one time per day over the weekend as an inpatient for therapeutic exercises, neuromuscular reeducation, functional mobility, gait training, and manual therapy. INITIAL TREATMENT: Treatment today consisted of the initial evaluation. The patient did not tolerate anymore activity today. The patient was left in chair with call light within reach, chair alarm activated, and TAX[employer] CAB [employer]IVER in room. The patient was issued a knee immobilizer as she demonstrated poor quad control at this time. FRANCHESCA
--- NOTE | 2017-10-04 13:02 | ORTHO.PROG ---
Last Taken Vital Signs: Vital Signs - Last Taken Temperature 98.1 F 10/04/17 12:18 Pulse Rate 87 10/04/17 12:18 Respiratory Rate 16 10/04/17 12:18 Blood Pressure 145/84 10/04/17 12:18 Pulse Ox 98 10/04/17 12:18 Subjective: Patient notes her block wore off and is starting to have some increasing pain but tolerable, graded as 4 out of 10 Objective: Patient's dressing is clean and dry her motor and sensory exam in the lower extremity is good. She has good pulses brisk refill or thigh pain. The negative suction dressing is working fine. Laboratory Results 10/04/17 10/04/17 Range/Units 04:35 04:35 WBC 5.06 (4.8-10.8) 10^3/uL RBC 2.94 L (4.20-5.40) 10^6/uL Hgb 9.5 L (12.0-16.0) g/dL Hct 28.2 L (37.0-47.0) % MCV 95.9 (81-99) FL MCH 32.3 H (27-31) PG MCHC 33.7 (33-37) g/dL RDW Std Deviation 43.9 (39-50) fL RDW Coeff of Reid 13.0 (11.5-14.5) % Plt Count 112 L (140-350) 10*3/uL MPV 10.8 (7.4-12.2) FL Sodium 136 (135-145) meq/L Potassium 4.1 (3.8-5.2) meq/L Chloride 109 (98-112) meq/L Carbon Dioxide 24 (23-33) meq/L Anion Gap 3 L (5-20) BUN 27 H (7-22) mg/dL Creatinine 1.2 (0.50-1.20) mg/dL BUN/Creatinine Ratio 22.50 H (6-20) Glucose 100 (78-110) mg/dL Calculated Osmolality 286.0 (267-292) mOsm/kg Calcium 9.0 (8.7-10.7) mg/dL Vital Signs (24 hrs) Temp Pulse Pulse Resp BP Pulse Ox 10/04/17 12:18 98.1 F 87 16 145/84 98 10/04/17 07:21 98.3 F 77 16 130/82 92 08/30/18 07:00 84 18 10/04/17 05:00 97.7 F 88 128/66 93 10/04/17 01:00 97.6 F 89 16 128/74 93 10/03/17 21:00 98.1 F 90 16 142/92 98 10/03/17 19:00 20 10/03/17 16:31 98.2 F 80 20 123/72 96 Assessment: Right total knee replacement Anemia Plan: Patient will continue with DVT prophylaxis with Lovenox and pneumatic sequentials. Pain control with IV Tylenol and oral pain meds. Continue icing and protection. We will have a CBC drawn tomorrow to check her hemoglobin and hematocrit but also more importantly to check her platelets to make sure that she is not continuing to drop on the Lovenox.
--- NOTE | 2017-10-04 13:34 | PDOC(PROG) ---
Date of Service: 10/04/17 Time of Service: 13:30 Interval History: No chest pain, shortness breath, nausea or vomiting. Knee pain is controlled with Dilaudid. Was a little worse with therapy today. States she is passing gas and wants to try suppository today. Objective : Data - Labs CBC and BMP: 10/04/17 04:35 10/04/17 04:35 Objective : Exam - General General Appearance: No Acute Distress, Cooperative Additional General Exam Details: Vital Signs - Last Taken Temperature 98.1 F 10/04/17 12:18 Pulse Rate 87 10/04/17 12:18 Respiratory Rate 16 10/04/17 12:18 Blood Pressure 145/84 10/04/17 12:18 Pulse Ox 98 10/04/17 12:18 - Eye Eye Exam: No Scleral Icterus - ENT ENT Exam: Mucous Membranes Moist - Respiratory Respiratory Exam: Clear to Auscultation - Bilaterally, Breathing Non Labored - Cardiovascular Cardiovascular Exam: RRR, No Murmur, No Clicks, No Gallops, No Rubs, No JVD - GI/Abdominal GI/Abdominal Exam: Normal Bowel Sounds, Non Tender, Non Distended, Soft - Extremities Extremities Exam: No Clubbing Present, No Cyanosis Present, +2 Edema (Right lower extremity, expected post knee replacement) - Neurological Neurological Exam: Alert, Oriented x 3, No Facial Droop, Speech Intact / Clear Assessment and Plan - Patient Problems (1) Benign essential hypertension Current Visit: Yes Status: Acute Onset Date: 07/21/11 Code(s): I10 - Essential (primary) hypertension (2) Status post total hip replacement, right Current Visit: Yes Status: Acute Code(s): Z96.641 - Presence of right artificial hip joint (3) lymphoma,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 No changes to those doses. No need for transfusion today. I did note the platelets, but I don't think it's heparin-induced thrombocytopenia. It is certainly not consistent with that at this drop but we' ll see what the value is tomorrow Continue PT and OT and continue with DVT prophylaxis. Suppository today
--- NOTE | 2017-10-04 14:30 | OTI REPORT ---
Thank you for the referral of Shameka Crain. She was seen on 10/03/17 for an occupational therapy inpatient evaluation status post right total knee arthroplasty. SUBJECTIVE: The patient is a 76-year-old female who had a total knee arthroplasty on the right side on 10/02/2017. The patient currently reports no pain while sitting in the recliner chair. The patient's home set up includes three steps to the entrance of her home. She does have hand rails. The patient's home is on all one level and the bathroom set up includes an ADA height toilet seat, a walk-in shower with a 3" ledge, and a shower chair already available. The patient was using a walker at prior level of function. She was independent in iADLs, ADLs, and driving. The patient would like to return to driving as soon as possible. The patient reports a medical history of a prior femur fracture on the left side. PAST MEDICAL HISTORY: Past medical history can be found in the patient's medical record. OBJECTIVE FINDINGS: Range of motion/Strength: The patient demonstrates upper extremity range of motion that is within functional limits for the shoulder, elbow, hand, and wrist with 4+/5 strength throughout. Ambulation: The patient demonstrates the ability to ambulate x15 feet with contact guard assist for safety while using the knee immobilizer per doctor's orders. The patient is weight-bearing as tolerated at this time. ASSESSMENT: The patient is a 76-year-old female who is status post right total knee arthroplasty. Rehab potential is good. Problem List: Decreased ability to perform lower extremity dressing Decreased ability to perform upper extremity dressing Decreased upper extremity strength Decreased ability to perform functional transfers Decreased activity tolerance Short-Term Goals: To be met by discharge from inpatient: Patient will demonstrate the ability to complete lower and upper extremity dressing tasks with adaptive equipment as needed with modified independence. Patient will increase standing balance/activity tolerance to stand x10 minutes with zero losses of balance before requiring a rest break in order to complete standing grooming tasks. Patient will participate in upper extremity strengthening tasks to assist with functional mobility tasks and demonstrate 5/5 strength in the shoulder, elbow, hand, and wrist. Patient will be able to complete all functional transfers with appropriate safety awareness with contact guard assist for safety. Long-Term Goals: To be met following discharge from inpatient: Patient will return home and may be seen by outpatient physical therapy. TREATMENT PLAN: Patient will be seen in the [facility] during the week and one time per day over the weekend as an inpatient to address the above goals and objectives. INITIAL TREATMENT: Treatment today consisted of the initial evaluation activities only. FRANCHESCA
[2017-10-05] MEDS: oxyCODONE IR Tab 5 MG TAB PO PRN ×4 (01:33→20:06)
[2017-10-05] MEDS: Acetaminophen 1000mg Inj 1,000 MG/100 ML VIAL IV SCH ×2 (04:37→12:51)
[2017-10-05 05:56] LABS: BLOOD UREA NITROGEN 22 mg/dL (7-22); BUN/CREATININE RATIO 24.44 (6-20)
[2017-10-05 06:31] LABS: Hematocrit [HCT] 30.7 % (37.0-47.0); Hemoglobin [HGB] 10.3 g/dL (12.0-16.0); MEAN CORPUSCULAR HEMOGLOBIN 32.4 PG (27-31); MEAN CORPUSCULAR HGB CONC 33.6 g/dL (33-37); MEAN CORPUSCULAR VOLUME 96.5 FL (81-99); MEAN PLATELET VOLUME 11.3 FL (7.4-12.2); RED BLOOD COUNT 3.18 10^6/uL (4.20-5.40)
[2017-10-05] MEDS: SELEGILINE HCL 5 MG PO SCH ×2 (07:19→12:10)
[2017-10-05] MEDS: HYDROCHLOROTHIAZIDE 12.5 MG CAPSULE PO SCH (07:20)
[2017-10-05] MEDS: ENOXAPARIN SODIUM 30 MG/0.3 ML SYRINGE SUBCUT SCH (08:19)
[2017-10-05] MEDS: CHOLECALCIFEROL 1000 IU TABLET PO SCH (08:20)
[2017-10-05] MEDS: DOCUSATE 100 MG CAPSULE PO SCH ×2 (08:20→20:06)
[2017-10-05] MEDS: LOSARTAN 50 MG TABLET PO SCH ×2 (08:20→20:06)
--- NOTE | 2017-10-05 08:21 | PT AM DAY ---
Diagnosis : Right Total Knee Arthroplasty AM - Physical Therapy S: The patient reports she is having a lot of discomfort with her knee immobilizer and was told by her physician that it is of utmost importance that she keeps wearing it until the blocks wear off, but also that she needs to get her leg straight. O: Following completion of occupational therapy, the patient was downstairs in the therapy gym where she received an application of moist heat pack x20 minutes including set up to the right knee followed by micro-current massage to the right knee for edema control. The patient performed therapeutic exercises and functional activities including active assisted heel slides, quad sets, short arc quads, long arc quads, sit to stands, and weight-shifting in her walker without the use of the brace with gait belt and contact guard assist. The patient was then able to ambulate 25 feet with walker, gait belt, weight- bearing as tolerated on the right lower extremity with the knee immobilizer, and verbal cues for proper hand placement and walker management. A: The patient is easily able to tolerate 100 degrees of passive flexion at this time; however, she has difficulty tolerating 10 degrees from full extension , which we will continue to work on. P: Continue seeing patient BID during the week and one time per day over the weekend for transfers, ambulation, and range of motion/strengthening exercises. MICAHD
--- NOTE | 2017-10-05 08:22 | ORTHO.PROG ---
Last Taken Vital Signs: Vital Signs - Last Taken Temperature 97.6 F 10/05/17 07:01 Pulse Rate 96 10/05/17 07:01 Respiratory Rate 16 10/05/17 07:01 Blood Pressure 142/75 10/05/17 07:01 Pulse Ox 94 10/05/17 07:01 Subjective: Patient had a good evening slept through the night Objective: On the mild amount of swelling negative suction dressing in place ice machine is also in place. Motor and sensory exam distally is good with no evidence of active issues. No significant swelling or edema. Laboratory Results 10/05/17 10/05/17 Range/Units 05:10 05:10 WBC 5.43 (4.8-10.8) 10^3/uL RBC 3.18 L (4.20-5.40) 10^6/uL Hgb 10.3 L (12.0-16.0) g/dL Hct 30.7 L (37.0-47.0) % MCV 96.5 (81-99) FL MCH 32.4 H (27-31) PG MCHC 33.6 (33-37) g/dL RDW Std Deviation 45.3 (39-50) fL RDW Coeff of Reid 13.4 (11.5-14.5) % Plt Count 103 L (140-350) 10*3/uL MPV 11.3 (7.4-12.2) FL Sodium 134 L (135-145) meq/L Potassium 4.4 (3.8-5.2) meq/L Chloride 103 (98-112) meq/L Carbon Dioxide 27 (23-33) meq/L Anion Gap 4 L (5-20) BUN 22 (7-22) mg/dL Creatinine 0.9 (0.50-1.20) mg/dL BUN/Creatinine Ratio 24.44 H (6-20) Glucose 107 (78-110) mg/dL Calculated Osmolality 280.0 (267-292) mOsm/kg Calcium 9.6 (8.7-10.7) mg/dL Vital Signs (24 hrs) Temp Pulse Pulse Resp BP Pulse Ox 10/05/17 07:01 97.6 F 96 16 142/75 94 10/05/17 07:00 80 10/05/17 04:52 98.7 F 95 16 135/86 92 10/04/17 23:43 98.0 F 88 20 117/73 91 10/04/17 21:00 98.8 F 98 20 132/80 92 10/04/17 16:57 98.9 F 97 16 137/86 97 10/04/17 12:18 98.1 F 87 16 145/84 98 Assessment: Right total knee replacement doing well Postoperative anemia Decreased platelet levels Plan: Patient will continue with physical therapy and occupational therapy, we are have her continue to use narcotic medication and trying to watch carefully for any evidence of serotonin syndrome. Patient will continue with DVT prophylaxis with pneumatic sequentials and Lovenox. I'll we will recheck her platelet level in the morning to make sure that this is not continuing to drop.
--- NOTE | 2017-10-05 08:25 | PT PM DAY ---
Diagnosis : Right Total Knee Arthroplasty PM - Physical Therapy S: The patient reports she is very fatigued from all of her therapy this morning, but is willing to try to do whatever she can to get her leg straight. O: Following completion of occupational therapy, the patient was downstairs in therapy where she received an application of moist heat pack x20 minutes including set up to the right knee followed by micro-current massage to the right knee for edema and pain control. She performed therapeutic exercises and functional activities including assisted short arc quads, heel slides, quad sets , long arc quads, sit to stands from the #2 box, and ambulatory activities with the brace on for up to 50 feet. The patient also received manual therapy in the form of tibial femoral and patellofemoral joint mobilization and passive stretching with emphasis on extension. A: Her limiting factor with extension at this time is pain only. P: Continue seeing patient BID during the week and one time per day over the weekend for transfers, ambulation, and range of motion/strengthening exercises. MTDD
--- NOTE | 2017-10-05 14:36 | PDOC(PROG) ---
Date of Service: 10/05/17 Time of Service: 14:33 Interval History: No completes of chest pain, shortness breath, nausea or vomiting. Interested in swing bed. Feels that she needs more therapy. States that her pain in her right knee is much better controlled. Objective : Data - Labs CBC and BMP: 10/05/17 05:10 10/05/17 05:10 Objective : Exam - General General Appearance: No Acute Distress, Cooperative Additional General Exam Details: Vital Signs - Last Taken Temperature 97.8 F 10/05/17 12:58 Pulse Rate 80 10/05/17 12:58 Respiratory Rate 18 10/05/17 12:58 Blood Pressure 133/80 10/05/17 12:58 Pulse Ox 95 10/05/17 12:58 - Eye Eye Exam: No Scleral Icterus - ENT ENT Exam: Mucous Membranes Moist - Respiratory Respiratory Exam: Clear to Auscultation - Bilaterally, Breathing Non Labored - Cardiovascular Cardiovascular Exam: RRR, No Murmur, No Clicks, No Gallops, No Rubs, No JVD - GI/Abdominal GI/Abdominal Exam: Normal Bowel Sounds, Non Tender, Non Distended, Soft - Extremities Extremities Exam: No Clubbing Present, No Cyanosis Present Additional Extremities Exam Details: Edema in right lower extremity is improved today. 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 I did take the patient through the 4 T's screening and she does not have high risk for heparin-induced thrombocytopenia. I did review literature and prophylaxis is still recommended with platelets greater than 50,000. I do think that the risk of a blood clot probably outweighs risk from thrombocytopenia at this point so continue with Lovenox. However, I will go ahead and reduce the dose to 40 mg daily. Would be best to do a total of 10-14 days of DVT prophylaxis. Continue PT and OT and work towards a swing bed. Pain control with opiates as necessary. Check CBC tomorrow but thus far no need for transfusion. No change to antihypertensive therapy today.
--- NOTE | 2017-10-05 15:55 | PT.PROG ---
Progress Note Progress Note: S. Patient stated that she is having some pain this morning. O. Patient ambulated 30 feet to the wheelchair and was wheeled to the therapy gym where she had heat and micro massage to decrease pain and edema. then performed heel slides, quad sets, ankle pumps, short arc quads, straight leg raises all x 10, sit to stands, long arc quads, 4 way ankle (yellow) all x 10, and minute drills 2x20 seconds. A. Patient tolerated therapy fair, she continues to struggle with pain and weakness, she continues to lack quad control and would continue to benefit from skilled therapy to increase strength and safety. P. Continue POC.
--- NOTE | 2017-10-05 16:03 | PT.PROG ---
Progress Note Progress Note: S. Patient stated that she is feeling a little better this afternoon, however continues to struggle with pain. O. Patient ambulated 30 feet to the wheelchair and was wheeled to the therapy gym where she had heat and micro massage to decrease pain and edema. then performed heel slides, quad sets, ankle pumps, short arc quads, straight leg raises all x 10, sit to stands, long arc quads, 4 way ankle (yellow) all x 10, and minute drills 2x20 seconds. A. Patient tolerated therapy fair, she continues to struggle with pain and weakness, she continues to lack quad control and would continue to benefit from skilled therapy to increase strength and safety. P. Continue POC.
[2017-10-05] MEDS: oxyCODONE/APAP 7.5/325 Tab 1 TAB TAB PO PRN (23:32)
[2017-10-06 06:14] LABS: Hematocrit [HCT] 30.7 % (37.0-47.0); Hemoglobin [HGB] 10.3 g/dL (12.0-16.0); MEAN CORPUSCULAR HEMOGLOBIN 32.7 PG (27-31); MEAN CORPUSCULAR HGB CONC 33.6 g/dL (33-37); MEAN CORPUSCULAR VOLUME 97.5 FL (81-99); MEAN PLATELET VOLUME 11.4 FL (7.4-12.2); RED BLOOD COUNT 3.15 10^6/uL (4.20-5.40)
[2017-10-06] MEDS: HYDROCHLOROTHIAZIDE 12.5 MG CAPSULE PO SCH (06:59)
[2017-10-06] MEDS: SELEGILINE HCL 5 MG PO SCH ×2 (06:59→12:08)
[2017-10-06 07:35] VITALS: O2SAT 95
[2017-10-06] MEDS: CHOLECALCIFEROL 1000 IU TABLET PO SCH (08:22)
[2017-10-06] MEDS: LOSARTAN 50 MG TABLET PO SCH (08:22)
[2017-10-06] MEDS: DOCUSATE 100 MG CAPSULE PO SCH (08:22)
[2017-10-06] MEDS: oxyCODONE/APAP 7.5/325 Tab 1 TAB TAB PO PRN ×2 (08:22→14:41)
[2017-10-06] MEDS ORDERED: ENOXAPARIN SODIUM 40 MG/0.4 ML SYRINGE SUBCUT SCH (09:00)
--- NOTE | 2017-10-06 11:20 | ORTHO.PROG ---
Last Taken Vital Signs: Vital Signs - Last Taken Temperature 98.8 F 10/06/17 07:33 Pulse Rate 93 10/06/17 07:33 Respiratory Rate 20 10/06/17 07:33 Blood Pressure 122/73 10/06/17 07:33 Pulse Ox 95 10/06/17 07:33 Subjective: Patient's pain well controlled on oral medication. Feels she is making well but does not feel that she can't fend for herself at home Objective: Patient with a 1+ effusion the Prevena dressing is in place with no blisters or other changes. She lacks about 10 of full extension apparently and therapy her flexion was to 90 her motor and sensory exam is nonfocal she has good pulses and brisk refill. Laboratory Results 10/06/17 Range/Units 04:10 WBC 5.65 (4.8-10.8) 10^3/uL RBC 3.15 L (4.20-5.40) 10^6/uL Hgb 10.3 L (12.0-16.0) g/dL Hct 30.7 L (37.0-47.0) % MCV 97.5 (81-99) FL MCH 32.7 H (27-31) PG MCHC 33.6 (33-37) g/dL RDW Std Deviation 46.1 (39-50) fL RDW Coeff of Reid 13.5 (11.5-14.5) % Plt Count 125 L (140-350) 10*3/uL MPV 11.4 (7.4-12.2) FL Vital Signs (24 hrs) Temp Pulse Pulse Resp BP Pulse Ox 10/06/17 07:33 98.8 F 93 20 122/73 95 10/06/17 07:00 84 10/06/17 04:20 98.0 F 96 18 136/66 92 10/05/17 20:18 98.3 F 97 20 138/77 94 10/05/17 17:00 97.9 F 104 H 18 135/73 97 10/05/17 12:58 97.8 F 80 18 133/80 95 Assessment: Right total knee replacement overall doing well Anemia Stable platelet levels Plan: Patient will continue with physical therapy and occupational therapy. Patient' s pain is well under control and we will continue with deep vein thromboses therapy with aspirin and pneumatic sequential devices.
--- NOTE | 2017-10-06 14:27 | DCSUMMARY ---
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 That procedure was performed by Dr. Viramontes, see his surgical note. Postoperatively, the patient did well with therapy but still has some therapy needs prior to discharging home and so she is going to the swing bed. She did not have any exacerbation of her chronic medical issues. Her hypertension was well controlled. She did have some thrombocytopenia but I think it was a consumptive process in the setting of a patient with having recent surgery and she did not appear to be at risk for heparin-induced cytopenia. DVT prophylaxis will be another 9 days of Lovenox. 40 mg daily. Continue with PT and OT. Postoperative management as per Dr. Viramontes. The patient's home medications of hydrochlorothiazide and others will not change. Today, no complains of chest pain, shortness breath, nausea or vomiting. She is very encouraged to do some additional therapy prior to discharge home. She thinks that she needs it and her quad was not firing very well on her right side today when I spoke with occupational therapy. Assessment and Plan: 1. As per discharge assessments noted 2. Disposition: Patient discharged to the swing bed 3. Condition on discharge, stable and improved. 4. Diet: regular diet 5. Activities: resume normal activities, Q PT and OT 6. Follow-Up: 1. Hospital service continue to service primary provider on the swing bed 2. 7. Medications at the Time of Discharge: Active Medications Generic Name Dose Route Start Last Admin Trade Name Freq PRN Reason Stop Dose Admin Acetaminophen 325 - 650 mg 10/02/17 16:44 Tylenol PO Q4H PRN pain or fever Al Hydroxide/Mg Hydroxide 10 - 20 ml 10/02/17 16:44 Mylanta Liquid PO Q6H PRN Indigestion Bisacodyl 5 mg 10/02/17 16:44 Dulcolax Tab PO BID PRN Constipation Bisacodyl 10 mg 10/02/17 16:44 10/05/17 16:29 Bisac-Evac Supp RECTAL 10 mg ONCE PRN Administration Constipation Calcium Carbonate 1 - 2 tab 10/02/17 16:44 Tums PO Q4H PRN Indigestion Cholecalciferol 2,000 iu 10/03/17 09:00 10/06/17 08:22 Vitamin D3 PO 2,000 iu DAILY [facility] Administration Diphenhydramine HCl 25 - 50 mg 10/02/17 16:44 Benadryl PO Q4H PRN Itching Docusate Sodium 100 mg 10/02/17 21:00 10/06/17 08:22 Colace PO 100 mg BID ASHER Administration Enoxaparin Sodium 40 mg 10/06/17 09:00 10/06/17 08:22 Lovenox Inj SUBCUT 40 mg DAILY ASHER Administration Hydrochlorothiazide 12.5 mg 10/03/17 07:00 10/06/17 06:59 Hydrodiuril PO 12.5 mg DAILY@0700 [facility] Administration Hydromorphone HCl 1 mg 10/02/17 16:44 10/04/17 17:41 Dilaudid Inj IVP 1 mg Q1H PRN Administration Moderate to Severe Pain Losartan Potassium 50 mg 10/02/17 21:00 10/06/17 08:22 Cozaar PO 50 mg BID [facility] Administration Non-Formulary Drug ( 5 mg 10/03/17 07:00 10/06/17 12:08 Selegiline Hcl 5 Mg) PO 5 mg C ROZ EDMONDS ASHER Administration Ondansetron HCl 4 mg 10/02/17 16:44 Zofran Inj IVP Q4H PRN NAUSEA / VOMITING Ondansetron HCl 8 mg 10/02/17 16:44 Zofran Odt PO Q6H PRN NAUSEA Oxycodone/Acetaminophen 1 - 2 tab 10/02/17 16:44 10/06/17 08:22 Percocet 7.5/325 Tab PO 1 tab Q4H PRN Administration Pain Prochlorperazine Maleate 10 mg 10/02/17 16:44 Compazine PO Q6H PRN NAUSEA 8. Time, care, counseling and coordination of care for this discharge is less than 30 minutes. Exam - Vitals Vital Signs: Vital Signs Temperature 98.8 F Temperature Source Temporal Artery Scan Pulse Rate [Apical] 84 Pulse Rate [Pulse Oximeter] 93 Pulse Rate 74 Respiratory Rate 20 Blood Pressure [Left Arm] 122/73 Blood Pressure 143/81 Pulse Ox 95 Oxygen Flow Rate 0.5 Oxygen Delivery Method Room Air Height 5 ft 4 in Weight 134 lb - General General Appearance: No Acute Distress, Cooperative - Head Head Exam: Normal Inspection, Normocephalic, Atraumatic - Eye Eye Exam: POSITIVE: No Scleral Icterus - Respiratory Respiratory Exam: POSITIVE: Clear to Auscultation - Bilaterally, Breathing Non Labored - Cardiovascular Cardiovascular Exam: POSITIVE: RRR, No Murmur, No Clicks, No Gallops, No Rubs, No JVD - GI/Abdominal GI/Abdominal Exam: POSITIVE: Normal Bowel Sounds, Non Tender, Non Distended, Soft - Extremities Extremities Exam: POSITIVE: No Clubbing Present, No Cyanosis Present, +1 Edema ( Overall, edema improved. Dressing is applied and it is clean, dry, intact) - Neurological Neurological Exam: POSITIVE: Alert, Oriented x 3, No Facial Droop, Speech Intact / Clear - Psychiatric Psychiatric Exam: POSITIVE: Normal Affect, Normal Mood Data Peritnent Studies: 10/05/17 10/06/17 05:10 04:10 WBC 5.65 Hgb 10.3 L Hct 30.7 L Plt Count 125 L Sodium 134 L Potassium 4.4 Chloride 103 Carbon Dioxide 27 Anion Gap 4 L BUN 22 Creatinine 0.9 BUN/Creatinine Ratio 24.44 H Glucose 107 Calculated Osmolality 280.0 Calcium 9.6 Procedures: [address] [facility]. [facility] [place] [address] PH: DD: [phone] FAX: [phone] ~DIAGNOSTIC IMAGING REPORT~ Patient: SHAWN BRANHAM I : 1940 Sex: F Age: 76 Exam Name: XR KNEE 1 OR 2 VWS Exam Date: 10/02/17 Report # : [id number] CPT Code: 91123 EMR/MR #: [id number] Ordering: MAICOL VIRAMONTES Admiting: Maicol Viramontes MD. Primary: Rj Kohli MD Attending: Maicol Viramontes MD. Signed XR KNEE 1 OR 2 VWS,10/02/2017 3:29 PM: Clinical History: Total knee arthroplasty Previous Exam: September 21, 2017 Findings: AP and lateral views of the right knee are obtained, and demonstrate postsurgical changes consistent with a right total knee arthroplasty. Overlying skin efraín are noted. There is a healing fracture of the right proximal fibula. There is no evidence of hardware loosening and no fracture. Impression: Status post right total knee arthroplasty. Dictated By: 10/03/17 1020 KALPESH KUMAR MD. Signed By: 10/03/17 1025 KALPESH KUMAR MD. Patient Problems - Patient Problem List (1) Status post right knee replacement Current Visit: Yes Status: Acute Code(s): Z96.651 - Presence of right artificial knee joint Category: Medical (2) Benign essential hypertension Current Visit: Yes Status: Chronic Onset Date: 07/21/11 Code(s): I10 - Essential (primary) hypertension Category: Medical (3) lymphoma,marginal zone Current Visit: Yes Status: Chronic Onset Date: 07/21/11 Category: Medical (4) Thrombocytopenia Current Visit: Yes Status: Acute Comment: Improved on the date of discharge. Consumptive process in the setting of surgery I suspect. Code(s): D69.6 - Thrombocytopenia, unspecified Category: Medical
[2017-10-06 14:36] VITALS: BP 113/68; RESP 16; TEMP 98.5
--- NOTE | 2017-10-09 10:05 | OT AM DAY ---
Diagnosis : Right Total Knee Arthroplasty AM - Occupational Therapy S: The patient reports she is having a lot of trouble with activating her leg. She states she feels very contracted and very stiff. O: Today when trying to activate the knee, the patient was having trace quadriceps activation. We started the patient on Filipino electrical stimulation during the heat. The patient was asked to contract both quadriceps muscles when the electrical stimulation was going on x10 off/10 on x15 minutes. The patient completed short arc quads, straight leg raises, hip abduction, heel slides, straight leg raises, and ankle pumps. She then sat up and performed long arc quads and 30 second assists. The patient needed assistance with all of the exercises. She struggled with activation of the quad muscle; however, the electrical stimulation was assisting her. A: The patient's quad muscle is minimally activating. We did start Filipino e-stim today and that should help. The patient reported that she felt a difference with her leg. P: Continue seeing patient BID during the week and one time per day over the weekend for upper extremity strengthening, ADLs, and overall functional mobility. FRANCHESCA
== END 2017-10-06 14:43 | disposition swing bed (61) | DRG 470 ==
LOC: OPS 10-02 09:45 → MED/SURG 10-02 16:29
PROVIDERS: ADMIT Orthopaedic Surgery; ATTEND Orthopaedic Surgery